=== PATIENT | male | born 1995 | race Two or more races ===

== ENCOUNTER 2017-03-05 18:19 | Emergency (ER) | payer BC, OTHER ==
[~2017-03-05] VITALS: Ht 165.1 cm; Wt 66.3 kg
[2017-03-05 18:21] VITALS: BP 107/66
[2017-03-05] MEDS ORDERED: DEXAMETHASONE 4 MG TABLET PO STA (18:32)
[2017-03-05] MEDS ORDERED: DEXAMETHASONE 4 MG TABLET ONE (19:14)
[2017-03-05] MEDS ORDERED: ACETAMINOPHEN 325 MG TABLET ONE (19:14)
[2017-03-05] MEDS: ACETAMINOPHEN 325 MG TABLET PO ONE ×2 (19:17→19:18)
== END 2017-03-05 20:01 | disposition home or self-care (01) ==
LOC: ED 19:55
DX: J02.8 Acute pharyngitis due to other specified organisms (principal)
CPT/HCPCS: 87081; 87880; 99284

== ENCOUNTER 2017-03-08 02:22 | Emergency (ER) | payer SELFPAY ==
[~2017-03-08] VITALS: Ht 165.1 cm; Wt 65.0 kg
[2017-03-08] MEDS ORDERED: DEXAMETHASONE 4 MG TABLET ONE (02:48)
[2017-03-08] MEDS ORDERED: DEXAMETHASONE 4 MG TABLET PO ONE (03:00)
[2017-03-08 03:11] VITALS: BP 113/63
== END 2017-03-08 03:13 | disposition home or self-care (01) ==
LOC: ED 02:58
DX: J02.0 Streptococcal pharyngitis (principal)
CPT/HCPCS: 99283